=== PATIENT | male | born 1980 | race Caucasian/White ===

== ENCOUNTER 2019-08-10 12:09 | Emergency (ER) | payer BC ==
[2019-08-10 13:23] VITALS: BP 126/68
--- NOTE | 2019-08-11 10:28 | UC ---
- Progress Note Progress Note: Final radiologist reading for right foot x-ray from August 10, 2019 comes back as no fracture. Provider reported same date is not available and no diagnosis is on the chart however discharge paperwork did not provide any information about fracture therefore there is no discrepancy. Course/Dx - Diagnoses Provider Diagnoses: Foot pain, right Discharge ED - Sign-Out/Discharge Documenting (check all that apply): Patient Departure All imaging exams completed and their final reports reviewed: Yes - Discharge Plan Condition: Stable Disposition: HOME Patient Education Materials: Arthralgia (ED) Referrals: Jae Zavala MD [Primary Care Provider] - Additional Instructions: 1. use the post of shoe for the next few days 2. Saok foot in warm water twice a day for the next week 3. Ibuprofen as needed for pain and swelling 4. elevate at rest. 5. Wear supportive shoes 6. Follow up with dr Zavala if not improving. - Billing Disposition and Condition Condition: STABLE Disposition: Home
--- NOTE | 2019-08-22 18:05 | UC ---
Lower Extremity/Ankle HPI - HPI Summary HPI Summary: RIGHT FOOT PAIN FOR TWO WEEKS. PAIN BECAME WORSE RECENTLY. NO RECALL OF INJURY. FOOT IS WARM AND RED, SWELLING. DENIES PAIN IN CALF - History of Current Complaint Chief Complaint: UCLowerExtremity Stated Complaint: RIGHT ANKLE PAIN Time Seen by Provider: 08/10/19 13:14 Hx Obtained From: Patient Onset/Duration: Sudden Onset, Lasting Days Severity Initially: Severe Severity Currently: Severe Pain Intensity: 8 Pain Scale Used: 0-10 Numeric Aggravating Factor(s): Standing, Ambulation Alleviating Factor(s): Rest Able to Bear Weight: Yes - Allergies/Home Medications Allergies/Adverse Reactions: Allergies Allergy/AdvReac Type Severity Reaction Status Date / Time No Known Allergies Allergy Verified 08/10/19 13:13 Home Medications: Home Medications Acetaminophen TAB* [Tylenol TAB*] 650 mg PO Q4H PRN 08/10/19 [History Confirmed 08/10/19] PMH/Surg Hx/FS Hx/Imm Hx Previously Healthy: Yes - Surgical History Surgical History: Yes Surgery Procedure, Year, and Place: TONSILLECTOMY. EAR TUBES. ARM FRACTURE - Family History Known Family History: Positive: Hypertension - Social History Alcohol Use: Rare Substance Use Type: None Smoking Status (MU): Heavy Every Day Tobacco Smoker Type: Cigarettes Amount Used/How Often: 1/2/PPD Have You Smoked in the Last Year: Yes Household Exposure Type: Cigarettes Review of Systems All Other Systems Reviewed And Are Negative: Yes Musculoskeletal: Positive: Arthralgia, Decreased ROM, Edema Physical Exam Triage Information Reviewed: Yes Appearance: Well-Appearing, Well-Nourished, Pain Distress Vital Signs: Initial Vital Signs Temp 98.3 F 08/10/19 13:16 Pulse 66 08/10/19 13:16 Resp 18 08/10/19 13:16 BP 126/68 08/10/19 13:16 Pulse Ox 99 08/10/19 13:16 Vital Signs Reviewed: Yes Eye Exam: Normal ENT Exam: Normal Dental Exam: Normal Neck exam: Normal Respiratory Exam: Normal Cardiovascular Exam: Normal Musculoskeletal: Positive: Strength Intact - right foot, ROM Limited @, Edema @ - right foot Skin Exam: Normal Lower Extremity Course/Dx - Course Course Of Treatment: hx obtained, exam performed ,meds reviewed, xray obtained, no visible fracture noted. - Differential Dx/Diagnosis Provider Diagnosis: Foot pain, right Discharge ED - Sign-Out/Discharge Documenting (check all that apply): Patient Departure All imaging exams completed and their final reports reviewed: Yes - Discharge Plan Condition: Stable Disposition: HOME Patient Education Materials: Arthralgia (ED) Referrals: Jae Zavala MD [Primary Care Provider] - Additional Instructions: 1. use the post of shoe for the next few days 2. Saok foot in warm water twice a day for the next week 3. Ibuprofen as needed for pain and swelling 4. elevate at rest. 5. Wear supportive shoes 6. Follow up with dr Zavala if not improving. - Billing Disposition and Condition Condition: STABLE Disposition: Home
== END 2019-08-10 14:09 | disposition home or self-care (01) ==
LOC: UCCORT 12:09
DX: M79.671 Pain in right foot (principal); F17.210 Nicotine dependence, cigarettes, uncomplicated
CPT/HCPCS: 99212; G0463